=== PATIENT | female | born 2000 | race Caucasian/White ===

== ENCOUNTER 2025-03-17 10:53 | Outpatient (AMB) | payer OTHER, SELFPAY ==
[2025-03-17 11:01] VITALS: BP 136/67; PULSE 76; RESP 18; O2SAT 98; BMI 31.3
--- NOTE | 2025-03-17 11:01 | A.OFFVIS_ITS ---
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 She reports that she started to feel this pain when she was a child. 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 She reports pain intensity from 4/10 to 7/10. She is unable to sleep normally she can not do activities of daily living she can not take care of herself but she can not function normally. 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 She reports weather changes have movements aggravate her pain. She reports that application of the topical medication helps her pain temporarily. She reports her pain in terms of tissue damage as pulsing, throbbing, pounding, dull, hurting, heavy, tiring, exhausting, tight sensation. She is currently involved in physical therapy with core strength physical therapy and reports minimal pain improvement. She tried chiropractic manipulations with very temporary pain relief. Massage therapy also temporarily relieved her pain. Occupational therapy was helpful for occasional hand pain but not for the pain in the neck. She tried tiger balm application and she tried 10s unit. She denies help from those applications. She had an MRI of the cervical spine which demonstrated minimal disc osteophyte complex abutting the ventral thecal sac but not changing spinal canal stenosis. This is at the level of C5-C6 vertebra. Her past medical history significant for headaches fatigue dizziness mental illness anxiety and depression irritable bowel syndrome GERD and menstrual dysfunction. She never had any surgeries. I smoking cigarettes drinking alcohol she denies recreational drugs. Review of Systems Const All systems reviewed & are unremarkable except as noted in HPI and below ENT Reports Normal hearing present Neuro Reports Normal hearing present, Denies Abnormal speech present, Denies confusion and Denies Sensory deficit (Neuro) Psych Denies confusion Physical Exam Vital Signs: Last Vital Signs Pulse 76 03/17/25 11:01 Resp 18 03/17/25 11:01 BP 136/67 03/17/25 11:01 Pulse Ox 98 03/17/25 11:01 Oxygen Delivery Method Room Air 03/17/25 11:01 BMI result Body Mass Index 31.3 Const General: no acute distress; No confusion Nutritional Appearance: obese morbidly obese Orientation/consciousness: patient oriented x3 and No confusion Eyes General: appearance normal, both eyes and all related structures Pupils: Equal, round and reactive pupils present EOM: EOMs intact bilaterally Neck Other: Limited range of motion of cervical spine, flexing forward and flexing backwards aggravates pain in the cervical spine. Minimal aggravation of the pain with axial compression. Spurling test is negative. Lhermitte test is negative. Valsalva maneuver mildly aggravate the pain in his cervical spine. Chest Chest palpation & inspection: normal inspection of the chest Resp Effort & Inspection: normal respiratory effort, able to speak in complete sentences, normal respiratory pattern, no audible wheezes and no cough Cardio Jugular venous distension: no JVD GI Inspection: Yes normal to inspection Neuro General: patient oriented x3, gait normal and No confusion Cranial nerves: Yes CN's II-XII intact bilaterally, Yes Equal, round and reactive pupils present, Yes Normal hearing present and Yes Ability to bilaterally elevate shoulders present Speech: No Abnormal speech present Gait exam (Neuro): Normal gait present Motor exam (neuro): 5/5 motor strength present throughout Sensory Exam: No Sensory deficit (Neuro) Extrem General: No pedal edema Psych Speech and movement: Normal speech and movement present Affect: normal affect Attitude: cooperative Thought process: Normal thought process present Thought content: Normal thought content present Insight: Good insight present (Psych) Judgement: Good judgement present (Psych) Assessment & Plan Assessment & Plan (1) Fibromyalgia: Code(s): M79.7 - Fibromyalgia Category: Medical (2) Murphy-Danlos syndrome: Code(s): Q79.60 - Murphy-Danlos syndrome, unspecified Category: Medical (3) Spondylosis of cervical region without myelopathy or radiculopathy: Code(s): M47.812 - Spondylosis without myelopathy or radiculopathy, cervical region Category: Medical (4) Chronic pain syndrome: Code(s): G89.4 - Chronic pain syndrome Category: Medical Plan She is asking me if treatment with low-dose naltrexone will help her pain. I will start her on very small dose of naltrexone 1.5 mg q.d.. It will be for 1 month. If after this interval she will start to feel better with her pain I can increase the dose to 3 and maybe to 4.5 mg we will naltrexone. I also will schedule her for diagnostic medial branch block bilateral C4, C5, C6 to diagnose and treat her cervical pain. This will be successful sprint PNS versus RFA could be considered to treat her pain. Medications: New naltrexone 1.5 mg PO .QD 30 caps 0RF 30 days Patient Instructions: I here by testify that I spent 45 minutes in conversation with this patient as well as planning her care and organizing this note. Coding Level of Care Code New Pt Level 4 (98283) Diagnoses Fibromyalgia M79.7 Murphy-Danlos syndrome Q79.60 Spondylosis of cervical region without myelopathy or radiculopathy M47.812 Chronic pain syndrome G89.4
--- OUTSIDE RECORDS SUMMARY | 2025-03-17 12:28 | XMS_ITS | Clinical Summary ---
Author Organization [facility] Address [address] [place] [id number] Phone Care Team Providers Care Bill Poster Installer Name Role Phone Curt Gay Primary Care Provider [phone] Allergies No known active allergies Medications amitriptyline (ELAVIL) 10 MG tablet Take 20 mg by mouth nightly at bedtime. 05/29/2022 Active buPROPion (WELLBUTRIN XL) 150 MG ER 24 hr tablet Take 150 mg by mouth daily before breakfast. 11/23/2021 Active SUMAtriptan (IMITREX) 50 MG tablet Take 50 mg by mouth daily. 06/20/2022 Active Active Problems Problem Noted Date Diagnosed Date Anxiety 02/04/2020 Moderate episode of recurrent major depressive d isorder 08/14/2019 Migraine without aura and wi th status migrainosus, not intractable 06/04/2017 Dysmenorrhea in the adolescent 11/21/2016 Acute nonintractable headache 09/12/2016 Vegan diet 01/05/2016 Sleeping difficulty 01/04/2015 Scoliosis 01/22/2014 Encounters Date Type Department Care Team Description 02/08/2025 Transcribe Orders [facility] [address] [place] [address] Curt Gay PA Encounter for rehabilitation (Primary Dx) 02/02/2025 12:34 PM EDT - 02/02/2025 11:59 PM EDT Hospital Encounter [facility] [address] [place] [address] Michael Wheat MD, MPH Discharge Disposition: Home or Self Care 01/25/2025 Orders Only [facility] [address] [place] [address] Carol Ann Reid, RN Pre-employment health screening examination (Primary Dx) from Last 3 Months Immunizations Immunization Administration Dates Next Due COVID-19 (Pre-04/08) Moderna Vaccine, mRNA, PF 06/30/2021,10/10/2020,09/12/2020 DTaP 03/28/2006, 3,2001,07/21,2001 [id number] 12/10/2002, 2,2001,05/12 HPV9 01/10/2017,01/05/2016 Hepatitis B Adult 11/13/2022, 2,2001,03/12 Hib,HbOC 12/10/2002, 2,2001,05/12 IPV 03/28/2006, 2,2001,05/12 Influenza Quadrivalent Prese rvative Free IM 03/23/2022,06/18/2020 MMR 03/06/2005,03/12/2002 Meningococcal MCV4P 04/09/2018,01/22/2014 Tdap 01/22/2014 Varicella 12/18/2011,03/12/2002 Social History Tobacco Use Types Packs/Day Years Used Date Smoking Tobacco: Never Smokeless Tobacco: Never Alcohol Use Standard Drinks/Week Comments Not Currently 0 (1 standard drink = 0.6 oz pur e alcohol) Education Answer Date Recorded Are you interested in more education? Not on dianne e 10/12/2022 Are you concerned about learning? Not on file 10/12/2022 No 10/12/2022 No 10/12/2022 Digital Access Answer Date Recorded No 11/10/2022 No 11/10/2022 No 11/10/2022 Reliable internet access at home? Not on file 11/10/2022 Device with a working camera? Not on file Comments Unknown Sex and Gender Information Value Date Recorded Sex Assigned at Female 10/19/2020 1:58 PM EDT Legal Sex Female 4:00 PM EDT Gender Identity Female 10/19/2020 1:58 PM EDT Sexual Orientation Not on file Last Filed Vital Signs Vital Sign Reading Time Taken Comments Blood Pressure 117/78 06/23/2022 4:06 PM EST Pulse 97 06/23/2022 4:06 PM EST Temperature 37.1 C (98.8 F) 06/23/2022 4:06 PM EST Respiratory Rate 20 06/23/2022 4:06 PM EST Oxygen Saturation 98% 06/23/2022 4:06 PM EST Inhaled Oxygen Concentration - - Weight 95.3 kg (210 lb) 06/23/2022 4:06 PM EST Height 170.2 cm (5' 7 ) 06/23/2022 4:06 PM EST Body Mass Index 32.89 06/23/2022 4:06 PM EST Plan of Treatment Upcoming Encounters Date Type Department Care Team (Late st Contact Info) Description 03/31/2025 10:45 AM EDT Office Visit [facility] [address] [place] [address] Curt Gay, PA [address] [place] [address] Yun Mckinney, PT [address] [place] [address] 04/07/2025 10:45 AM EDT Office Visit [facility] [address] [place] [address] Curt Gay, PA [address] [place] [place] [address] Yun Mckinney, PT [address] [place] [address] 04/14/2025 1:45 PM EDT Office Visit [facility] [address] [place] [address] Curt Gay, PA [address] [place] [address] Yun Mckinney, PT [address] [place] [address] 04/16/2025 8:30 AM EDT Office Visit [facility] [address] [place] [address] Curt Gay, PA [address] [place] [address] Yun Mckinney, PT [address] [place] [address] 04/21/2025 1:45 PM EST Office Visit [facility] [address] [place] [address] Curt Gay, PA [address] [place] [address] Yun Mckinney, PT [address] [place] [address] 04/28/2025 1:45 PM EST Office Visit [facility] [address] [place] [address] Curt Gay, PA [address] [place] [address] Yun Mckinney, PT [address] [place] [address] 04/30/2025 8:30 AM EST Office Visit [address] [address] Curt aGy, PA [address] [place] [address] Yun Mckinney, PT [address] [place] [address] 05/05/2025 1:45 PM EST Office Visit [facility] [address] [place] [address] Curt Gay, PA [address] [place] [address] Yun Mckinney, PT [address] [place] [address] Health Maintenance Due Date Last Done Comments DEPRESSION SCREENING 2013 SMOKING Hx and SMOKELESS TOBACCO SCREENING 2014 CHLAMYDIA SCREENING 2017 MENINGOCOCCAL VACCINES (B) (1 of 2 - Standard) 2017 HEPATITIS C SCREENING 2019 HIV ONE-TIME SCREENING (18-65 YEARS) 2019 PAP SMEAR 2022 Adult Td,Tdap Booster 01/23/2024 01/22/2014 INFLUENZA VACCINE (#1) 2025 , 06/18/2020, 06/18/2020 COVID-19 VACCINE ( season) 2025 06/30/2021, 10/10/2020, 09/12/2020 HIB VACCINES Completed 12/10/2002, 11/16, 2001, Additional history exists HPV VACCINES Completed 01/10/2017, 01/05/2016 MENINGOCOCCAL VACCINES (ACWY) Completed 04/09/2018, 01/22/2014 HEPATITIS A VACCINES Aged Out No long er eligible based on patient's age to complete this topic PNEUMOCOCCAL VACCINES (0-49 years) Aged Out No longer eligible based on patient's age to complete this topic Medical Devices Not on file Procedures Procedure Name Priority Date/Time Associated Diagnosis Comments HC TB CELL MEDIATED ANTIGN RESPNSE GAMMA INTERFERON Routine 02/02/2025 1:22 PM EDT Pre-employment health screening examination from Last 3 Months Results * Quantiferon-TB Gold (02/02/2025 1:22 PM EDT) QuantiFERON-TB Gold Negative Negative [facility] Comment: (NOTE) No interferon-gamma response to M. tuberculosis antigens was detected. Latent infection with M. tuberculosis is unlikely. A single negative result does not exclude infection with M. tuberculosis. In patients at high risk for M.tuberculosis infection, a second test should be considered in accordance with the 2017 ATS/IDSA/CDC Clinical Practice Guidelines for Diagnosis of Tuberculosis in Adults and Children [Alfredn ANDER et. al. Clin. Infect. Dis. 2017;64(2):111-115]. The reference range for the 'TB1 Ag minus Nil Result' and 'TB2 Ag minus Nil Result' is an Interferon-gamma level <0.35 IU/mL. TB1 Ag minus Nil 0.00 IU/mL [facility] TB2 Ag minus Nil 0.00 IU/mL [facility] Mitogen minus Nil 9.98 IU/mL [facility] Nil Result 0.02 IU/mL [facility] Blood 02/02/2025 1:22 PM EDT 02/02/2025 1:30 PM EDT us Michael Wheat MD, MPH LAB BLOOD ORDERABLES Fin al Result [facility] [address] [place] [address] from Last 3 Months Insurance [facility] PCC [facility] Care Teams Bill Poster Installer Relationship Specialty Start Date End Date Curt Gay PA [address] [place] [address] PCP - General Physician Cuff Setter Lockstitch 02/11/25 Additional Source Comments The information contained in this document represents components of the legal health record. It is not the complete legal health record.[facility]
--- OUTSIDE RECORDS SUMMARY | 2025-03-17 12:28 | XMS_ITS | Encounter Summary ---
Author Organization [facility] Address [address] [place] [phone] Phone Care Team Providers Care Supervisor Ditching Name Role Phone Donya Ramirez Primary Care Provider Curt Gay Primary Care Provider [phone] Encounter Details Date Type Department Care Team (Latest Contact Info) Description 12/10/2022 Transcribe Orders Virtual Department [address] [place] [phone] Zev Bazzi DO, MPH [address] [place] [address] [email or web address] Other back pain, unspecified chronicity (Primary Dx) Social History Tobacco Use Types Packs/Day Years [...] PM EDT Sexual Orientation Not on file documented as of this encounter Plan of Treatment Upcoming Encounters Date Type Department Care Team (Late st Contact Info) Description 03/31/2025 10:45 AM EDT Office Visit [address] [place] [address] Curt Gay, PA [address] [place] [address] Yun Mckinney, PT [address] [place] [address] 04/07/2025 10:45 AM EDT Office Visit [address] [address] Curt Gay, PA [address] [place] [address] Yun Mckinney, PT [address] [place] [address] 04/14/2025 1:45 PM EDT Office Visit [address] [address] Curt Gay, PA [address] [place] [address] Yun Mckinney, PT [address] [place] [address] 04/16/2025 8:30 AM EDT Office Visit [address] [place] [address] Curt Gay, PA [address] [place] [address] Yun Mckinney, PT [address] [place] [address] 04/21/2025 1:45 PM EST Office Visit [address] [address] Curt Gay, PA [address] [place] [address] Yun Mckinney, PT [address] [place] [address] 04/28/2025 1:45 PM EST Office Visit [address] [address] Curt Gay, PA [address] [place] [address] Yun Mckinney, PT [address] [place] [address] 04/30/2025 8:30 AM EST Office Visit [address] [address] Curt Gay, PA [address] [place] [address] Yun Mckinney, PT [address] [place] [address] 05/05/2025 1:45 PM EST Office Visit [address] [address] Curt Gay, PA [address] [place] [address] Yun Mckinney, PT [address] [place] [address] documented as of this encounter Visit Diagnoses Diagnosis Other back pain, unspecified chronicity- Primary documented in this encounter Care Teams Supervisor Ditching Relationship Specialty Start Date End Date Donya Ramirez PA [address] [place] [address] PCP - General 06/23/22 02/10/25 Curt Gay PA [address] [place] [address] PCP - General Physician Plastics Scientist 02/11/25 documented as of this encounter Additional Source Comments The information contained in this document represents components of the legal health record. It is not the complete legal health record.[facility]
== END 2025-03-17 11:27 | disposition home or self-care (01) ==
LOC: HO.PMC 10:54
PROVIDERS: Visit Provider Anesthesiology
DX: M79.7 Fibromyalgia (principal); Q79.60 Ehlers-Danlos syndrome, unspecified; M47.812 Spondylosis without myelopathy or radiculopathy, cervical region; G89.4 Chronic pain syndrome
CPT/HCPCS: 99204